=== PATIENT | female | born 2000 | race Hispanic/Latino ===

== ENCOUNTER 2020-10-26 18:30 | Emergency (ER) | payer SELFPAY ==
[~2020-10-26] VITALS: Ht 152.4 cm; Wt 76.2 kg
[2020-10-26] MEDS ORDERED: PREDNISONE20 MG PO (18:36)
== END 2020-10-26 19:01 | disposition home or self-care (01) ==
LOC: ER 18:35
DX: R06.00 Dyspnea, unspecified (principal); R21 Rash and other nonspecific skin eruption; U07.1 COVID-19
CPT/HCPCS: 99282